=== PATIENT | male | born 2005 | race African-American/Black ===

== ENCOUNTER 2025-01-18 07:35 | Emergency (ER) | payer OTHER ==
[2025-01-18 08:41] LABS: APPEARANCE,URINE CLEAR; GLUCOSE,URINE NEGATIVE (NEGATIVE); OCCULT BLOOD,URINE NEGATIVE (NEGATIVE)
[2025-01-18 10:11] LABS: C. TRACHOMATIS BY PCR NOT DETECTED; N. GONORRHOEAE BY PCR NOT DETECTED
== END 2025-01-18 10:38 | disposition home or self-care (01) ==
LOC: MW.ED 07:35
DX: N50.3 Cyst of epididymis (principal); Z88.0 Allergy status to penicillin
CPT/HCPCS: 76870; 76870-26; 81003; 87491; 87591; 93976; 93976-26; 99282; 99284